=== PATIENT | female | born 1975 | race Hispanic/Latino ===

== ENCOUNTER 2018-04-03 09:35 | Emergency (ER) | payer SELFPAY ==
[2018-04-03 10:05] LABS: Bilirubin Negative (Negative); Blood, Urine Moderate (Negative); Clarity CLEAR (Clear); Glucose, Urine (Dipstick) Negative (Negative); Leukocyte Negative (Negative); Nitrite Negative (Negative); Protein, Urine (Dipstick) Negative (Neg-Trace); Specific Gravity, Urine 1.005 (1.002-1.036); Urobilinogen 0.2 mg/dL (0.2-1.0); pH, Urine 6.5 (5.0-9.0)
[2018-04-03 10:07] LABS: Bacteria/HPF None Seen HPF (None Seen); Hyaline Casts/LPF 0-3 HYALINE CAST LPF (0-3 Hyaline); Pathc Cast-AUWi Flag 0.43 (0-2.49); Squamous Epithelial 0-3 HPF (0-3); WBC/HPF None Seen HPF (0-3)
[2018-04-03 10:51] LABS: Pregnancy Test - Urine (BHCG) Negative (Negative); Pregu Control Background? CLEAR/WHITE (CLR/WHITE); Pregu Control Bar Appear? YES (CONTROL BAR); Specific Gravity 1.005 (1.002-1.036)
[2018-04-03] MEDS ORDERED: Acetaminophen 500 MG TAB ONE (11:07)
--- NOTE | 2018-04-03 11:41 | ULT ---
PELVIC ULTRASOUND: History: Pelvic pain. FINDINGS: Real-time imaging of the pelvis was obtained transabdominally. This shows the uterus which measures 3 .2 x 4.7 x 8.3. The endometrium is in the 3 mm range. The right ovary is normal in size. There is a small follicle present. Left ovary has been removed by history. DOPPLER EVALUATION WITH SPECTRAL ANALYSIS: Normal flow is shown to the right ovary. IMPRESSION: 1. Normal appearing uterus. No fibroids. 2. Small follicle involving the right adnexa. 3. Left ovary is not identified. By history it has been removed. POS: [facility]
[2018-04-06 14:06] LABS: Chlamydia by PCR Not Detected (NotDetected); GC by PCR Not Detected (NotDetected)
== END 2018-04-03 13:25 | disposition home or self-care (01) ==
LOC: ERS 09:35
DX: N76.0 Acute vaginitis (principal); D50.9 Iron deficiency anemia, unspecified; G43.909 Migraine, unspecified, not intractable, without status migrainosus; F41.9 Anxiety disorder, unspecified; F32.9 Major depressive disorder, single episode, unspecified; F17.210 Nicotine dependence, cigarettes, uncomplicated
CPT/HCPCS: 76856; 81003; 81015; 81025; 87480; 87491; 87510; 87591; 87660

== ENCOUNTER 2025-02-25 10:12 | Emergency (ER) | payer OTHER, SELFPAY ==
[2025-02-25] MEDS ORDERED: Ketorolac Tromethamine 30 MG (1 mL) VIAL ONE (12:18)
[2025-02-25] MEDS ORDERED: Lidocaine 1% PF 5 ML VIAL ONE (12:20)
[2025-02-25 12:41] LABS: #Basophils 0.05 10x3/uL (0.0-0.2); #Eosinophils 0.13 10x3/uL (0.0-0.7); #Monocytes 1.15 10x3/uL (0.11-0.59); #Neutrophils 9.68 10x3/uL (1.40-6.50); %Basophils 0.4 % (0.0-1.0); %Eosinophils 1.0 % (0.0-10.0); %Lymphocytes 17.7 % (21.0-51.0); %Monocytes 8.6 % (0.0-10.0); %Neutrophils 71.9 % (42.0-75.0); Hematocrit 39.4 % (36.0-47.0); Hemoglobin 13.4 g/dL (12.0-16.0); Mean Corpuscular Hemoglobin 32.0 pg (27.0-31.0); Mean Corpuscular Volume 94.0 fL (78.0-98.0); Platelet Count 266 10x3/uL (130-400); Red Blood Cell (RBC) Count 4.19 mill/uL (4.20-5.40); White Blood Cell (WBC) Count 13.45 10x3/uL (4.8-10.8)
[2025-02-25 13:03] LABS: Anion Gap 13 mmol/L (10-20); BUN (Urea Nitrogen) 12 mg/dL (7.0-18.7); Calc. Creatinine Clearance 0 mL/min (70-130); Carbon Dioxide 20 mmol/L (22-29); Chloride 109 mmol/L (98-107); Glucose 102 mg/dL (70-105); Potassium 3.7 mmol/L (3.5-5.1); Sodium 138 mmol/L (136-145)
[2025-02-25 13:04] LABS: ALT (SGPT) 12 U/L (Less than 34); AST (SGOT) 19 U/L (11-34); Albumin 4.1 g/dL (3.1-4.5); Alkaline Phosphatase 108 U/L (40-110); Bilirubin, Total 0.3 mg/dL (0.3-1.2); Calcium 8.9 mg/dL (7.8-10.44); Globulin 3.0 g/dL (2.4-3.5)
[2025-02-25] MEDS ORDERED: Clindamycin 150 MG CAP ONE (14:23)
== END 2025-02-25 14:33 | disposition home or self-care (01) ==
LOC: ERS 10:12
DX: L02.612 Cutaneous abscess of left foot (principal); M54.32 Sciatica, left side; Z87.891 Personal history of nicotine dependence; Z79.899 Other long term (current) drug therapy
CPT/HCPCS: 10060; 80053; 83605; 85025; 86141; 87040; 87070; 87077; 87186; 87205; 96372; J1885

== ENCOUNTER 2025-03-01 08:56 | Emergency (ER) | payer SELFPAY | END 2025-03-01 12:40 | disposition home or self-care (01) | LOC: ERS 08:56 | DX: S91.302A Unspecified open wound, left foot, initial encounter (principal); F17.210 Nicotine dependence, cigarettes, uncomplicated; X58.XXXA Exposure to other specified factors, initial encounter | CPT/HCPCS: 99282 ==